=== PATIENT | male | born 1995 | race Caucasian/White ===

== ENCOUNTER 2016-09-21 12:08 | Emergency (ER) | payer SELFPAY ==
[~2016-09-21] VITALS: Ht 185.4 cm; Wt 99.8 kg
[2016-09-21 12:14] VITALS: BP_SYST 142
[2016-09-21 12:50] VITALS: BP_SYST 142
== END 2016-09-21 12:50 ==
LOC: SED 12:08
DX: M25.521 Pain in right elbow (principal); R03.0 Elevated blood-pressure reading, without diagnosis of hypertension; F41.9 Anxiety disorder, unspecified; F32.9 Major depressive disorder, single episode, unspecified; F90.9 Attention-deficit hyperactivity disorder, unspecified type
CPT/HCPCS: 99284